=== PATIENT | female | born 1985 | race African-American/Black ===

== ENCOUNTER 2019-06-27 02:28 | Inpatient (IN) ==
[2019-06-27] MEDS ORDERED: CITRIC ACID/SODIUM CITRATE 30 ML UDCUP PO ONE (04:02)
[2019-06-27] MEDS ORDERED: ceFAZolin 2,000 MG in PREMIX 1 EACH IV ONE (04:02)
[2019-06-27] MEDS ORDERED: diphenhydrAMINE 50 MG/1 ML VIAL IV PRN (04:03)
[2019-06-27] MEDS ORDERED: LACTATED RINGERS 1,000 ML IV ONE (04:03)
[2019-06-27] MEDS ORDERED: hydrOXYzine HCL 25 MG/1 ML VIAL IM PRN (04:03)
[2019-06-27] MEDS ORDERED: FAMOTIDINE 20 MG/2 ML VIAL IV ONE (04:14)
[2019-06-27] MEDS ORDERED: OXYTOCIN/LR 20 UNIT/1,000 ML BAG IV ONE ×3 (04:18→06:07)
[2019-06-27 04:30] LABS: Basophils % 0.5 % (0.0-0.8); Eosinophils # 0.3 10*3/uL (0.0-0.87); Eosinophils % 2.8 % (0.00-10.9); Hematocrit 27.3 VOL% (35.7-47.0); Hemoglobin 8.4 GM/DL (12.0-16.0); Immature Granulocytes % 0.6 %; Immature Granulocytes Absolute 0.05 #; Lymphocytes # 1.5 10*3/uL (1.4-4.0); Lymphocytes % 17.4 % (21.3-54.2); Mean Corpuscular HGB Conc 30.8 GM/DL (32-36); Mean Corpuscular Volume 81.7 FL (87-102); Mean Platelet Volume 9.9 FL (9.6-12.0); Monocytes % 8.8 % (1.7-12.7); Neutrophils % 69.9 % (38.7-73.9); Platelet Count 206 T/CUMM (130-400); Red Blood Count 3.34 MC/CUMM (3.8-5.5); White Blood Count 8.9 T/CUMM (4-12)
[2019-06-27] MEDS ORDERED: LACTATED RINGERS 1,000 ML IV SCH ×2 (04:30→06:30)
[2019-06-27] MEDS ORDERED: TRANEXAMIC ACID 1,000 MG/10 ML VIAL ONE (04:34)
[2019-06-27] MEDS ORDERED: miSOPROStoL 200 MCG TABLET ONE (04:34)
[2019-06-27] MEDS ORDERED: METHYLERGONOVINE 0.2 MG/1 ML AMP ONE (04:34)
[2019-06-27] MEDS ORDERED: CARBOPROST TROMETHAMINE 250 MCG/ML AMP IM ONE (04:35)
[2019-06-27 04:42] LABS: INR 0.9; PT Patient Result 9.3 SECS (9.6-12.2)
[2019-06-27 04:52] LABS: Alanine Aminotransferase 15 U/L (13-56); Albumin 2.4 G/DL (3.4-5.0); Alkaline Phosphatase 133 U/L (45-117); Aspartate Amino Transferase 20 U/L (0-37); Bilirubin,Total < 0.39 MG/DL (0.2-1.0); Blood Urea Nitrogen 12 MG/DL (7-18); Calcium 8.5 MG/DL (8.5-10.1); Estimated Glom Filtration Rate 128 ML/MIN; Glucose 85 MG/DL (74-106); Osmolality,Calculated 275.5 MOS/KG (273-304); Total Protein 7.1 G/DL (6.4-8.3); Uric Acid 4.4 MG/DL (2.6-6.0)
[2019-06-27] MEDS ORDERED: MIDAZOLAM 2 MG/2 ML VIAL ONE (06:02)
[2019-06-27] MEDS ORDERED: KETAMINE 500 MG/10 ML VIAL ONE (06:03)
[2019-06-27] MEDS ORDERED: MORPHINE 10 MG/10 ML VIAL ONE (06:03)
[2019-06-27] MEDS ORDERED: BUPIVACAINE SPINAL 0.75% 2 ML AMP SPINAL ONE (06:03)
[2019-06-27] MEDS ORDERED: ACETAMINOPHEN 325 MG TABLET PO PRN (06:07)
[2019-06-27] MEDS ORDERED: RHO(D) IMMUNE GLOBULIN 300 MCG SYRINGE IM ONE (06:07)
[2019-06-27] MEDS ORDERED: oxyCODONE/ACETAMINOPHEN 5-325 MG TABLET PO PRN (06:09)
[2019-06-27 06:26] LABS: Apearance,Urine CLEAR (Clear); Bacteria,Urine Occasional /HPF (Few); Bilirubin,Urine Negative (Negative); Blood, Urine Negative (Negative); Glucose,Urine (UA) Negative (Negative); Ketones,Urine 5 mg/dL (Negative); Mucus,Urine Occasional /LPF (Occasional); Nitrite,Urine Negative (Negative); Protein,Urine Negative; RBC,Urine 1 /HPF (0-4); Squamous Epithelial Cell,Urine Occasional /HPF (0-10); Urine Color Yellow (Yellow); Urine Specific Gravity 1.018 (1.001-1.035); WBC,Urine 1 /HPF (0-6)
[2019-06-27] MEDS ORDERED: LABETALOL 200 MG TABLET ONE (06:28)
[2019-06-27] MEDS ORDERED: HYDROmorphone 2 MG/1 ML VIAL IV ONE (07:42)
[2019-06-27] MEDS: IBUPROFEN 800 MG TABLET PO PRN ×2 (09:06→19:57)
[2019-06-27] MEDS: oxyCODONE/ACETAMINOPHEN 5-325 MG TABLET PO PRN ×3 (09:12→21:45)
[2019-06-27] MEDS: MULTIVITAMIN (PRENATAL) TABLET PO SCH (12:03)
[2019-06-27] MEDS: DOCUSATE SODIUM 100 MG CAPSULE PO SCH ×2 (12:04→21:33)
[2019-06-28] MEDS: oxyCODONE/ACETAMINOPHEN 5-325 MG TABLET PO PRN ×4 (04:17→23:46)
[2019-06-28 06:13] LABS: Basophils % 0.1 % (0.0-0.8); Eosinophils # 0.3 10*3/uL (0.0-0.87); Eosinophils % 2.9 % (0.00-10.9); Hematocrit 20.7 VOL% (35.7-47.0); Immature Granulocytes % 1.1 %; Immature Granulocytes Absolute 0.11 #; Lymphocytes # 1.3 10*3/uL (1.4-4.0); Lymphocytes % 12.4 % (21.3-54.2); Mean Corpuscular Volume 81.8 FL (87-102); Mean Platelet Volume 10.1 FL (9.6-12.0); Monocytes % 6.5 % (1.7-12.7); Platelet Count 168 T/CUMM (130-400); Red Blood Count 2.53 MC/CUMM (3.8-5.5); Red Cell Distribution Width 17.3 % (9.3-17.3); White Blood Count 10.4 T/CUMM (4-12)
[2019-06-28 06:17] LABS: Hemoglobin 6.2 GM/DL (12.0-16.0)
[2019-06-28] MEDS ORDERED: SODIUM CHLORIDE 0.9% 1,000 ML IV PRN (06:43)
[2019-06-28] MEDS: DOCUSATE SODIUM 100 MG CAPSULE PO SCH ×2 (09:33→21:00)
[2019-06-28] MEDS: MULTIVITAMIN (PRENATAL) TABLET PO SCH (09:33)
[2019-06-28] MEDS: IBUPROFEN 800 MG TABLET PO PRN (10:10)
[2019-06-28] MEDS: LABETALOL 200 MG TABLET PO SCH ×2 (12:04→21:00)
[2019-06-28] MEDS: LEVALBUTEROL 1.25 MG/3 ML NEB RESP TX SCH (19:26)
[2019-06-29] MEDS: LEVALBUTEROL 1.25 MG/3 ML NEB RESP TX SCH ×4 (01:05→19:09)
[2019-06-29 05:40] LABS: Basophils % 0.1 % (0.0-0.8); Eosinophils # 0.5 10*3/uL (0.0-0.87); Eosinophils % 3.5 % (0.00-10.9); Hematocrit 26.2 VOL% (35.7-47.0); Hemoglobin 8.5 GM/DL (12.0-16.0); Immature Granulocytes % 0.9 %; Immature Granulocytes Absolute 0.12 #; Lymphocytes # 1.6 10*3/uL (1.4-4.0); Lymphocytes % 11.5 % (21.3-54.2); Mean Corpuscular HGB Conc 32.4 GM/DL (32-36); Mean Corpuscular Volume 82.6 FL (87-102); Mean Platelet Volume 9.9 FL (9.6-12.0); Monocytes % 5.8 % (1.7-12.7); Neutrophils % 78.2 % (38.7-73.9); Platelet Count 183 T/CUMM (130-400); Red Blood Count 3.17 MC/CUMM (3.8-5.5); Red Cell Distribution Width 16.9 % (9.3-17.3)
[2019-06-29] MEDS ORDERED: INFLUENZA VIRUS VACCINE 0.5 ML SYRINGE IM ONE (07:00)
[2019-06-29] MEDS: oxyCODONE/ACETAMINOPHEN 5-325 MG TABLET PO PRN ×3 (07:08→19:43)
[2019-06-29] MEDS: LABETALOL 200 MG TABLET PO SCH ×2 (07:48→10:22)
[2019-06-29] MEDS: SIMETHICONE CHEW 80 MG TABLET PO PRN ×2 (09:43→21:25)
[2019-06-29] MEDS: DOCUSATE SODIUM 100 MG CAPSULE PO SCH ×2 (09:43→21:25)
[2019-06-29] MEDS: MULTIVITAMIN (PRENATAL) TABLET PO SCH (09:43)
[2019-06-29] MEDS: LABETALOL 100 MG TABLET PO SCH ×2 (14:09→21:25)
[2019-06-29] MEDS: MAGNESIUM HYDROXIDE SUSP 30 ML UDCUP PO PRN (21:25)
[2019-06-30] MEDS: LEVALBUTEROL 1.25 MG/3 ML NEB RESP TX SCH ×4 (01:22→19:47)
[2019-06-30] MEDS: oxyCODONE/ACETAMINOPHEN 5-325 MG TABLET PO PRN ×4 (02:56→20:53)
[2019-06-30] MEDS: LABETALOL 100 MG TABLET PO SCH ×2 (08:46→20:53)
[2019-06-30] MEDS: SIMETHICONE CHEW 80 MG TABLET PO PRN (08:46)
[2019-06-30] MEDS: DOCUSATE SODIUM 100 MG CAPSULE PO SCH ×2 (08:46→20:52)
[2019-06-30] MEDS: MULTIVITAMIN (PRENATAL) TABLET PO SCH (08:46)
[2019-06-30] MEDS: MAGNESIUM HYDROXIDE SUSP 30 ML UDCUP PO PRN (08:46)
[2019-06-30] MEDS ORDERED: DIPH/TET/ACEL PERT BOOSTER VACCINE 0.5 ML VIAL IM ONE (13:22)
[2019-06-30 19:04] LABS: Basophils % 0.2 % (0.0-0.8); Eosinophils # 0.4 10*3/uL (0.0-0.87); Eosinophils % 3.1 % (0.00-10.9); Hematocrit 26.7 VOL% (35.7-47.0); Hemoglobin 8.5 GM/DL (12.0-16.0); Immature Granulocytes % 0.7 %; Immature Granulocytes Absolute 0.09 #; Lymphocytes # 1.6 10*3/uL (1.4-4.0); Lymphocytes % 12.3 % (21.3-54.2); Mean Corpuscular HGB Conc 31.8 GM/DL (32-36); Mean Corpuscular Volume 83.4 FL (87-102); Mean Platelet Volume 8.9 FL (9.6-12.0); Monocytes % 4.7 % (1.7-12.7); Platelet Count 225 T/CUMM (130-400); Red Cell Distribution Width 17.1 % (9.3-17.3); White Blood Count 12.7 T/CUMM (4-12)
[2019-07-01] MEDS: LEVALBUTEROL 1.25 MG/3 ML NEB RESP TX SCH ×2 (01:16→08:05)
[2019-07-01] MEDS: oxyCODONE/ACETAMINOPHEN 5-325 MG TABLET PO PRN ×2 (03:41→09:45)
[2019-07-01] MEDS: MAGNESIUM HYDROXIDE SUSP 30 ML UDCUP PO PRN (04:54)
[2019-07-01] MEDS ORDERED: hydroCHLOROthiazide 25 MG TABLET PO ONE (07:37)
[2019-07-01] MEDS ORDERED: hydrALAZINE 25 MG TABLET ONE (07:40)
[2019-07-01] MEDS: LABETALOL 100 MG TABLET PO SCH (07:41)
[2019-07-01] MEDS: IBUPROFEN 800 MG TABLET PO PRN (07:41)
[2019-07-01] MEDS: DOCUSATE SODIUM 100 MG CAPSULE PO SCH (07:43)
[2019-07-01] MEDS: MULTIVITAMIN (PRENATAL) TABLET PO SCH (09:44)
[2019-07-01 09:58] VITALS: BP 147/92
== END 2019-07-01 10:55 | disposition home or self-care (01) | DRG 785 ==
LOC: N.LDOUT 02:28 → N.LD 02:29 → N.OB 08:37
PROVIDERS: ADMIT Obstetrics & Gynecology; ATTEND Obstetrics & Gynecology